=== PATIENT | female | born 1955 | race Caucasian/White ===

== ENCOUNTER 2020-10-15 09:42 | Outpatient (CLI) | payer MEDICARE ==
[2020-10-15] VITALS (18 sets, daily range): BP systolic 75–129; BP diastolic 52–89
[~2020-10-15 09:42] MED LIST: BACL20TA2 PO; CLON-369 PO; RIVA20TA PO
== END 2020-10-15 23:59 | disposition home or self-care (01) ==
LOC: CARD DIAG 09:42
PROVIDERS: ATTEND Internal Medicine Cardiovascular Disease
DX: R42 Dizziness and giddiness (principal)
CPT/HCPCS: 93660

== ENCOUNTER 2024-02-26 15:26 | Emergency (ER) | payer MEDICARE, OTHER ==
[~2024-02-26] VITALS: Ht 167.6 cm; Wt 98.2 kg
[~2024-02-26 15:26] MED LIST changes: -BACL20TA2 PO; +CARV-50 PO; +CLON1TAB95 PO; +HYDR12.55 PO; -RIVA20TA PO
[2024-02-26 15:30] VITALS: TEMP 98.9
[2024-02-26] MEDS ORDERED: AMOX500C42 PO (15:35)
[2024-02-26] MEDS ORDERED: ESCI20TA39 PO (15:35)
[2024-02-26 15:57] LABS: BILIRUBIN,URINE NEGATIVE (Neg); CLARITY,URINE SLIGHTLY CLOUDY (Clear); COLOR,URINE YELLOW (Yellow); GLUCOSE, URINE NEGATIVE (Neg); KETONES,URINE NEGATIVE (Neg); LEUKOCYTE ESTERASE ,URINE NEGATIVE (Neg); NITRITES, URINE NEGATIVE (Neg); OCCULT BLOOD,URINE NEGATIVE (Neg); PH,URINE 7.5 (4.8-8.0); PROTEIN,URINE NEGATIVE (Neg); UROBILINOGEN,URINE 0.2 E.U/dL (0.2-1.0)
[2024-02-26 15:59] LABS: UA COLLECTION TYPE CLN CATCH MIDSTREAM
[2024-02-26 16:12] LABS: MUCUS STRANDS FEW /LPF (Neg); SQUAMOUS EPITHELIAL CELL,UR MODERATE /LPF (FEW)
[2024-02-26 16:13] LABS: BACTERIA,URINE 1+ /HPF (Neg); RBC,URINE 0-2 /HPF (0-2); WBC,URINE 0-4 /HPF (0-4)
[2024-02-26 16:48] LABS: BASOPHILS # (AUTO) 0.1 X10'3 (0-0.2); BASOPHILS % (AUTO) 0.9 % (0-1); EOSINOPHILS # (AUTO) 0.2 X10'3 (0-0.9); EOSINOPHILS % (AUTO) 3.8 % (0-6); HEMATOCRIT 46.1 % (35.0-45.0); HEMOGLOBIN 15.6 g/dl (12.0-16.0); LYMPHOCYTES # (AUTO) 2.2 X10'3 (1.1-4.8); LYMPHOCYTES % (AUTO) 35.2 % (21-51); MEAN CORPUSCULAR HEMOGLOBIN 30.4 PG (27.0-31.0); MEAN CORPUSCULAR HGB CONC 33.7 g/dL (33.0-36.5); MEAN CORPUSCULAR VOLUME 90.1 FL (78-98); MEAN PLATELET VOLUME 8.6 FL (7.4-10.4); MONOCYTES # (AUTO) 0.6 X10'3 (0-0.9); NEUTROPHILS # (AUTO) 3.1 X10'3 (1.8-7.7); NEUTROPHILS % (AUTO) 50.1 % (42-75); PLATELET COUNT 242 X10'3 (140-440); RED BLOOD COUNT 5.12 X10'6 (4.20-5.60); RED CELL DISTRIBUTION WIDTH 13.1 % (11.5-14.5); WHITE BLOOD COUNT 6.2 X10'3 (4.5-11.0)
[2024-02-26 17:03] LABS: ALANINE AMINOTRANSFERASE 26 U/L (12-78); ALBUMIN/GLOBULIN RATIO 0.9 (1.1-1.5); ALKALINE PHOSPHATASE 63 IU/L (46-116); ANION GAP 8 (8-16); ASPARTATE AMINO TRANSFERASE 17 U/L (10-37); BLOOD UREA NITROGEN 16 MG/DL (7-18); BUN/CREATININE RATIO 17.4 (10.0-20.0); CALCIUM 9.5 MG/DL (8.5-10.1); CHLORIDE 101 MMOL/L (99-107); CREATININE 0.92 MG/DL (0.40-0.90); GLUCOSE 99 MG/DL (70-104); LIPASE 39 U/L (16-77); POTASSIUM 3.8 MMOL/L (3.5-5.1); SODIUM 138 MMOL/L (135-145); TOTAL CARBON DIOXIDE 29.1 MMOL/L (24-32); TOTAL PROTEIN 8.6 G/DL (6.4-8.2); eCRCL 55 ML/MIN; eGFR 61 ML/MIN
[2024-02-26 17:06] VITALS: BP 130/84; O2SAT 92
[2024-02-26 17:37] VITALS: RESP 18
[2024-02-26] MEDS: HYDROcodone/acetaminophen 10/325mg tab PO ONE (17:37)
== END 2024-02-26 18:23 | disposition home or self-care (01) ==
LOC: ER 15:26
DX: M54.50 Low back pain, unspecified (principal); F41.9 Anxiety disorder, unspecified; Z79.2 Long term (current) use of antibiotics; Z79.899 Other long term (current) drug therapy
CPT/HCPCS: 36415; 74176; 80053; 81001; 83690; 85025; 99284

== ENCOUNTER 2024-07-10 16:48 | Emergency (ER) | payer MEDICARE, OTHER ==
[~2024-07-10] VITALS: Ht 167.6 cm; Wt 97.7 kg
[~2024-07-10 16:48] MED LIST changes: +AMOX500C42 PO; -CLON-369 PO; -CLON1TAB95 PO; +ESCI20TA39 PO
[2024-07-10 16:51] VITALS: TEMP 97.8
[2024-07-10] MEDS: LIDOcaine 1% W/epiNEPHrine 1:100,000 20ml vial SQ ONE ×2 (18:14→18:56)
[2024-07-10] MEDS: fentaNYL/PF 50MCG/1 ML 2ML syringe IV ONE ×2 (18:16→18:55)
[2024-07-10] MEDS: ondansetron/PF 4mg/2ml inj IV ONE (18:45)
[2024-07-10] MEDS ORDERED: ONDA-243 PO (19:27)
[2024-07-10] MEDS ORDERED: OXYC-145 PO (19:27)
[2024-07-10] MEDS: ondansetron 4mg rapidly disintigrating tab PO ONE (19:43)
[2024-07-10] MEDS: oxyCODONE/APAP 10/325mg tablet PO ONE (19:44)
[2024-07-10 19:57] VITALS: BP 126/74; PULSE 77; RESP 13; O2SAT 96
== END 2024-07-10 19:50 | disposition home or self-care (01) ==
LOC: ER 16:49
DX: S82.841A Displaced bimalleolar fracture of right lower leg, initial encounter for closed fracture (principal); F41.9 Anxiety disorder, unspecified; Z79.1 Long term (current) use of non-steroidal anti-inflammatories (NSAID); Z79.899 Other long term (current) drug therapy; X50.1XXA Overexertion from prolonged static or awkward postures, initial encounter; Y93.89 Activity, other specified; Y92.89 Other specified places as the place of occurrence of the external cause; Y99.8 Other external cause status
CPT/HCPCS: 27810; 73610; 96374; 96375; 96376; 99284; A4620; A6449; J2405; J3010; J3490; Z7610

== ENCOUNTER 2025-07-09 13:28 | Outpatient (CLI) | payer MEDICARE, OTHER ==
[~2025-07-09 13:28] MED LIST changes: +ONDA-243 PO; +OXYC-145 PO
--- NOTE | 2025-07-09 14:43 | RADIOLOGY REPORT ---
CLINICAL INDICATION: ACUTE PAIN IN RIGHT WRIST TECHNIQUE: 3 radiographic views of the right wrist were obtained. Comparison: DI HAND, COMPLETE (3VW MIN) on DOS: 07/09/25 FINDINGS/IMPRESSION: Severe osteoarthrosis of the 1st carpometacarpal joint. Malleolar lucency in the scaphoid bone may represent a nondisplaced fracture versus prominent nutrient foramen. Correlate with point tenderness.
--- NOTE | 2025-07-09 14:44 | RADIOLOGY REPORT ---
CLINICAL INDICATION: ACUTE PAIN IN RIGHT WRIST TECHNIQUE: 3 radiographic views of the right hand were obtained. Comparison: DI WRIST, COMPLETE (3VW MIN) on DOS: 07/09/25 FINDINGS/IMPRESSION: Severe osteoarthrosis of the 1st carpometacarpal joint. Malleolar lucency in the scaphoid bone may represent a nondisplaced fracture versus prominent nutrient foramen. Correlate with point tenderness.
== END 2025-07-09 23:59 | disposition home or self-care (01) ==
LOC: RAD 13:28
PROVIDERS: ATTEND Family Medicine
DX: M18.0 Bilateral primary osteoarthritis of first carpometacarpal joints (principal); M25.531 Pain in right wrist
CPT/HCPCS: 73110; 73130